=== PATIENT | female | born 1990 | race African-American/Black ===

== ENCOUNTER 2020-01-18 12:15 | Emergency (ER) | payer OTHER, SELFPAY | END 2020-01-18 13:58 | disposition home or self-care (01) | LOC: ERS 12:15 | DX: R20.0 Anesthesia of skin (principal) | CPT/HCPCS: 99281 ==

== ENCOUNTER 2022-10-11 23:39 | Emergency (ER) | payer SELFPAY ==
[2022-10-12] MEDS ORDERED: HYDROcodone/Acetaminophen 5/325 mg Tablet ONE (01:33)
== END 2022-10-12 01:36 | disposition home or self-care (01) ==
LOC: ERS 23:39
DX: K02.9 Dental caries, unspecified (principal)
CPT/HCPCS: 99282